=== PATIENT | male | born 1955 | race Caucasian/White ===

== ENCOUNTER 2017-01-10 17:30 | Emergency (ER) | payer MEDICARE ==
[~2017-01-10 17:30] MED LIST: ALBUTEROL 0.5ML INH; ALBUTEROL17 GM INH; ALPRAZOLAM PO; AMITRYPTYLINE PO; ARICEPT PO; ATACAND HCT 16/1 TAB PO; AVELOX400 MG PO; CELEXA PO; COUMADIN PO; CRESTOR PO; HYDROCODONE-APA1 T30; KEPPRA750 MG PO; KLONOPIN PO; LEXAPRO PO; LISINOPRIL PO; LORTAB 10/500 T1 TAB PO; MEDROL PO; NEURONTIN PO; RYTHMOL PO; SYMBICORT INH; ZITHROMAX PO; ZOCOR PO
== END 2017-01-10 18:50 | disposition expired ==
LOC: CED 17:30
DX: I46.9 Cardiac arrest, cause unspecified (principal); I10 Essential (primary) hypertension; R27.0 Ataxia, unspecified; F17.200 Nicotine dependence, unspecified, uncomplicated
CPT/HCPCS: 92950; 99285